=== PATIENT | female | born 1970 ===

== ENCOUNTER 2024-10-06 06:47 | Inpatient (IN) | payer OTHER ==
[2024-09-26 09:52] LABS: HEMATOCRIT 38.6 % (36.0-45.00); HEMOGLOBIN 12.6 g/dL (12.0-15.00); MEAN CELL VOLUME 86.8 fL (80.00-100.00); MEAN CORPUSCULAR HEMOGLOBIN 28.2 pg (27.00-32.0); MEAN CORPUSCULAR HGB CONC 32.5 g/dl (32.0-36.0); PLATELET COUNT 296 K/uL (150-450); RED BLOOD COUNT 4.45 M/uL (4.00-6.00); RED CELL DISTRIBUTION WIDTH 14.8 % (11.5-14.5)
[2024-09-26 09:56] LABS: PH,URINE 6.5 (5.0-8.0); URINE APPEARANCE Clear; URINE BILIRRUBIN Negative (NEGATIVE); URINE BLOOD Negative; URINE COLOR Yellow; URINE GLUCOSE Negative (NEGATIVE); URINE KETONE Negative (NEGATIVE); URINE LEUKOCYTE Trace; URINE NITRATE Negative; URINE PROTEIN Trace (NEGATIVE); URINE UROBILINOGEN 0.2 E.U./dl
[2024-09-26 10:01] LABS: URINE BACTERIA 28.9 uL (0.0-1933); URINE EPITHELIAL CELLS 8.3 uL (0.0-38.8); URINE RBC 11.6 uL (0.0-20.8); URINE WBC 11.5 uL (0.0-23.2)
[2024-09-26 10:12] LABS: INR 0.94; PARTIAL THROMBOPLASTIN TIME 24.5 SECONDS (22.0-34.0); PROTHROMBIN TIME 10.3 SECONDS (9.0-11.5)
[2024-09-26 10:35] LABS: URINE CAST 0.61 uL (0.0-1.40)
[2024-09-26 11:00] LABS: ALBUMIN 3.7 gm/dL (3.4-5.0); BILIRUBIN TOTAL 0.38 mg/dL (0.3-1.2); CREATININE SERUM 0.7 mg/dL (0.55-1.02); GFR 87.2; GLOBULINA 3.9 G/DL (2.4-3.5); POTASSIUM 4.76 mEq/L (3.5-5.1); TOTAL PROTEIN 7.6 gm/dL (6.4-8.2)
[~2024-10-06] VITALS: Ht 160 cm; Wt 81.6 kg
[~2024-10-06 06:47] MED LIST: GLIMEPIRIDE2 MG; LOSARTAN POTASS25 MG PO; METFORMIN HCL500 M3 PO
[2024-10-06] MEDS ORDERED: CEFAZOLIN SODIUM 1,000 MG VIAL IV ONE (08:00)
[2024-10-06] MEDS ORDERED: DEXAMETHASONE SODIUM PHOSPHATE 4 MG/ML VIAL IV ONE (08:00)
[2024-10-06] MEDS ORDERED: Calcium Carbonate 1 TAB TABLET PO SCH (09:36)
[2024-10-06] MEDS ORDERED: RINGERS SOLUTION,LACTATED 1,000 ML IV SCH (09:45)
[2024-10-06] MEDS ORDERED: ONDANSETRON HCL 2 MG/ML VIAL IV PRN (09:45)
[2024-10-06] MEDS ORDERED: TRAMADOL HCL 50 MG TABLET PO SCH (09:46)
[2024-10-06] MEDS ORDERED: CYCLOBENZAPRINE HCL 5 MG TABLET PO SCH (09:52)
[2024-10-06] MEDS ORDERED: ACETAMINOPHEN 500 MG GEL..CAP PO SCH (09:52)
[2024-10-06] MEDS ORDERED: MORPHINE SULFATE 4 MG/ML VIAL IV ONE ×2 (10:25→11:20)
[2024-10-06] MEDS ORDERED: ONDANSETRON HCL 2 MG/ML VIAL IV ONE ×2 (11:55)
[2024-10-06 16:00] VITALS: BP 111/67; O2SAT 97
[2024-10-06] MEDS ORDERED: BUTALB/ACETAMINOPHEN/CAFFEINE 1 TAB TABLET PO SCH (17:00)
[2024-10-06] MEDS ORDERED: PANTOPRAZOLE SODIUM 40 MG/VIAL VIAL IV PUSH SCH (21:00)
[2024-10-07] VITALS: BP 132/65; O2SAT 99
[2024-10-07] MEDS ORDERED: LEVOTHYROXINE SODIUM 125 MCG TABLET PO SCH (06:00)
[2024-10-07] MEDS ORDERED: LOSARTAN POTASSIUM 25 MG TABLET PO SCH (09:00)
[2024-10-07 09:43] VITALS: BP 138/73; O2SAT 98
== END 2024-10-07 09:53 | disposition home or self-care (01) | DRG 627 ==
LOC: CIR.AMB 06:47 → O/R 10:10 → SURH 12:05
PROVIDERS: ADMIT Surgery; ATTEND Surgery
PROC: 0GTH0ZZ Resection of Right Thyroid Gland Lobe, Open Approach (ICD-10-PCS; principal; 2024-10-06 07:00)
DX: C73 Malignant neoplasm of thyroid gland (principal); Z20.822 Contact with and (suspected) exposure to COVID-19